=== PATIENT | female | born 1980 | race African-American/Black ===

== ENCOUNTER → 2023-12-12 | Outpatient (CLI) | payer OTHER | LOC: M RAD 13:37 | PROVIDERS: ATTEND Physician Assistant | DX: M25.512 Pain in left shoulder (principal) ==

== ENCOUNTER → 2024-02-03 | Outpatient (CLI) | payer OTHER | LOC: M RAD 17:13 | PROVIDERS: ATTEND Family Medicine | DX: K42.9 Umbilical hernia without obstruction or gangrene (principal); L98.7 Excessive and redundant skin and subcutaneous tissue ==

== ENCOUNTER → 2024-03-25 | Outpatient (CLI) | payer OTHER | LOC: M RAD 10:37 | PROVIDERS: ATTEND Physician Assistant | DX: R43.0 Anosmia (principal) ==